=== PATIENT | female | born 1990 | race American Indian/Alaskan Native ===

== ENCOUNTER 2017-11-10 20:50 | Emergency (ER) | payer MEDICAID ==
--- NOTE | 2017-11-10 23:41 | XRay Report ---
FINAL REPORT EXAM: XR CHEST ROUTINE 2V HISTORY: chest pain s/p fall TECHNIQUE: 2 views of the chest. PRIORS: None. FINDINGS: The cardiomediastinal silhouette appears normal. The lungs are clear. The bones and soft tissues are unremarkable. IMPRESSION: No evidence of acute cardiopulmonary disease
[2017-11-11] MEDS ORDERED: ROXICODONE PO ONE (05:04)
--- NOTE | 2017-11-11 05:10 | Emergency Department Report ---
ED General Adult HPI - General Chief complaint: Chest Pain Stated complaint: CP Time Seen by Provider: 11/11/17 04:50 Source: patient Mode of arrival: Ambulatory Limitations: No Limitations - History of Present Illness Initial comments: Patient sustained fall while going downstairs approximately 6-8 hours prior to arrival, reporting that she struck central portion of her's chest over her sternum directly, with significant and persistent pain in that area. She is not practically short of breath, has no bony pains in the sides or in the ribs, but she also has discomfort in the right side of her neck, aggravated with any movements. She has no focal neurologic symptoms, she has no paresthesias or numbness in the shoulder or in the arms. She's been in good general health, has not been ill recently, has no cardiopulmonary problems, Onset/Timin -: hour(s) Location: chest Radiation: non-radiation Severity scale (0 -10): 10 Quality: aching, sharp Consistency: constant Improves with: none Worsens with: other Associated Symptoms: other (deep breathing right-sided neck pain) - Related Data Previous Rx's Medication Instructions Recorded Last Taken Type HYDROcodone/APAP 5-325 [[place] 2 each PO Q6H PRN #30 tablet 02/04/16 Unknown Rx 5-325 mg TAB] Ibuprofen [Motrin 600 MG tab] 600 mg PO Q6HR PRN #60 tablet 02/04/16 Unknown Rx oxyCODONE /ACETAMINOPHEN [Percocet 1 - 2 tab PO Q6HR PRN #30 tab 11/11/17 Unknown Rx 5/325] Allergies Allergy/AdvReac Type Severity Reaction Status Date / Time No Known Allergies Allergy Verified 07/15/15 12:55 ED Review of Systems ROS: Stated complaint: CP Other details as noted in HPI Comment: All other systems reviewed and negative Constitutional: denies: chills, fever Eyes: denies: eye pain, eye discharge, vision change ENT: denies: ear pain, throat pain Respiratory: other (anterior chest pain overlying sternum) Cardiovascular: chest pain. denies: syncope Endocrine: no symptoms reported Gastrointestinal: denies: abdominal pain, nausea, diarrhea Musculoskeletal: denies: back pain, joint swelling, arthralgia Skin: denies: rash, lesions Neurological: denies: headache, weakness, paresthesias Psychiatric: denies: anxiety, depression ED Past Medical Hx - Past Medical History Previous Medical History?: Yes Hx Hypertension: No Hx Congestive Heart Failure: No Hx Diabetes: No Hx Deep Vein Thrombosis: No Hx Renal Disease: No Hx Sickle Cell Disease: No Hx Seizures: No Hx Asthma: No Hx COPD: No Hx HIV: No Additional medical history: scoliosis - Surgical History Past Surgical History?: No - Social History Smoking Status: Never Smoker Substance Use Type: Alcohol, Marijuana - Medications Home Medications: Home Medications Medication Instructions Recorded Confirmed Last Taken Type HYDROcodone/APAP 5-325 [[place] 2 each PO Q6H PRN #30 tablet 02/04/16 Unknown Rx 5-325 mg TAB] Ibuprofen [Motrin 600 MG tab] 600 mg PO Q6HR PRN #60 tablet 02/04/16 Unknown Rx oxyCODONE /ACETAMINOPHEN [Percocet 1 - 2 tab PO Q6HR PRN #30 tab 11/11/17 Unknown Rx 5/325] ED Physical Exam - General Limitations: No Limitations General appearance: in distress (moderate discomfort secondary to persistent chest pain in area of impact) - Head Head exam: Present: atraumatic, normocephalic - Eye Eye exam: Present: PERRL, EOMI - ENT ENT exam: Present: normal exam, mucous membranes moist - Neck Neck exam: Present: tenderness (right paracervical soft tissue, no direct cervical spine tenderness or step-off.). Absent: full ROM (limited by pain, particularly on right side) - Respiratory Respiratory exam: Present: normal lung sounds bilaterally, chest wall tenderness (anteriorly, overlying midsternum and lower sternum). Absent: respiratory distress, wheezes, rales, rhonchi - Cardiovascular Cardiovascular Exam: Present: regular rate, normal rhythm. Absent: systolic murmur, diastolic murmur, rubs, gallop - GI/Abdominal GI/Abdominal exam: Present: soft, normal bowel sounds - Rectal Rectal exam: Present: deferred - Extremities Exam Extremities exam: Present: normal inspection, full ROM. Absent: tenderness - Back Exam Back exam: Present: normal inspection. Absent: tenderness - Neurological Exam Neurological exam: Present: alert, oriented X3, CN II-XII intact. Absent: motor sensory deficit - Psychiatric Psychiatric exam: Present: normal affect, normal mood - Skin Skin exam: Present: warm, dry, intact, normal color. Absent: rash ED Course Vital Signs 11/10/17 11/11/17 21:53 05:20 Temperature 37.2 C Pulse Rate 75 Respiratory 18 Rate Blood Pressure 130/88 O2 Sat by Pulse 100 Oximetry - Reevaluation(s) Reevaluation #1: 11/11/17 06:06 Patient is still uncomfortable in the sternal area on recheck, but is stable, breathing normally, and has negative evaluation: Chest x-ray, sternal x-ray and cervical spine x-rays. She is stable for discharge home, but will need rest, will be given work release, and analgesics. ED Medical Decision Making - Radiology Data Radiology results: report reviewed (x-rays reviewed, show normal chest x-ray, with no pneumothorax, sternal views are negative, cervical spine is also negative.) - Medical Decision Making Patient has a significant contusion to the sternum, which makes it difficult to breathe, but she is clinically stable, has stable vital signs, no fracture, no pneumothorax, and no findings suggestive of acute cervical injury other than soft tissue myofascial strain. She can be treated symptomatically with rest, local heat, and analgesics. She'll be given work release, and recommended for follow-up examination in 4-5 days by primary care physician. - Differential Diagnosis sternal fracture, rib fracture, costochondritis, pneumothorax Critical Care Time: No Critical care attestation.: If time is entered above; I have spent that time in minutes in the direct care of this critically ill patient, excluding procedure time. ED Disposition Clinical Impression: Sternal contusion Chest wall contusion Qualifiers: Encounter type: initial encounter Laterality: unspecified laterality Qualified Code(s): S20.219A - Contusion of unspecified front wall of thorax, initial encounter Acute cervical myofascial strain Qualifiers: Encounter type: initial encounter Qualified Code(s): S16.1XXA - Strain of muscle, fascia and tendon at neck level, initial encounter Disposition: -01 TO HOME OR SELFCARE Is pt being admited?: No Does the pt Need Aspirin: No Condition: Stable Instructions: Contusion in Adults (ED) Additional Instructions: You have bruised her chest wall, but there are no fractures. You have also strained the neck injury or fall, but there are no fractures in the neck either. We're prescribing oxycodone for severe pain, which you may take one or 2 tablets at a time, every 6 hours as needed. Cool compresses may help, 15-30 minutes at a time, 3-4 times per day, but she may also use moist heat, moderate level, the same duration and frequency. Rest while you're feeling poorly, but remember that you may get more stiff and more painful over the next couple days before he started to feel better. This is normal, but we want you to come back for repeat examination if you have any severe shortness of breath, difficulty breathing, or severe abdominal pain Have repeat examination by your doctor next week. Prescriptions: oxyCODONE /ACETAMINOPHEN [Percocet 5/325] 1 - 2 tab PO Q6HR PRN #30 tab PRN Reason: Pain , Severe (7-10) Referrals: PRIMARY CARE, [Primary Care Provider] - 3-5 Days Time of Disposition: 06:13
--- NOTE | 2017-11-11 05:42 | XRay Report ---
FINAL REPORT PROCEDURE: XR SPINE CERVICAL 2-3V TECHNIQUE: Cervical spine radiographs, AP and lateral projections. CPT 56017 HISTORY: fall, direct trauma sternum, right neck pain COMPARISON: No prior studies are available for comparison. FINDINGS: Prevertebral soft tissues: Normal. Alignment: Normal. Vertebral body heights/Disk spaces: Normal. Fracture(s): None. Facets: Normal. Bone mineralization: Normal. IMPRESSION: Normal Examination
--- NOTE | 2017-11-11 05:44 | XRay Report ---
FINAL REPORT PROCEDURE: XR STERNUM 2+V TECHNIQUE: Sternal radiographs, minimum of 2 views, including lateral and oblique projections. HISTORY: fall, direct sternal trauma, right cervical pain COMPARISON: No prior studies are available for comparison. FINDINGS: Bone mineralization: Normal. Fractures: None. Retrosternal soft tissue: Normal. IMPRESSION: Normal Examination.
[2017-11-11 07:03] VITALS: BP 126/80
== END 2017-11-11 06:25 | disposition home or self-care (01) ==
LOC: ED 20:50
DX: S16.1XXA Strain of muscle, fascia and tendon at neck level, initial encounter (principal); S20.219A Contusion of unspecified front wall of thorax, initial encounter; F12.10 Cannabis abuse, uncomplicated; W18.30XA Fall on same level, unspecified, initial encounter; Y93.89 Activity, other specified; Y92.89 Other specified places as the place of occurrence of the external cause; Y99.8 Other external cause status
CPT/HCPCS: 71046; 71120; 72040; 93005; 93010

== ENCOUNTER 2019-09-09 10:02 | Emergency (ER) | payer MEDICAID, OTHER ==
[2019-09-09] MEDS ORDERED: KETOROLAC 30 MG/1 ML INJ IV ONE (10:59)
[2019-09-09] MEDS ORDERED: SODIUM CHLORIDE 0.9% 1000 ML 1,000 ML IV ONE ×2 (10:59→12:04)
--- NOTE | 2019-09-09 10:59 | Emergency Department Report ---
ED Female HPI - General Chief complaint: Vaginal Bleeding Stated complaint: POSS MISCARRIAGE Time Seen by Provider: 09/09/19 10:54 Source: patient Mode of arrival: Wheelchair Limitations: No Limitations - History of Present Illness Initial comments: This is a 29-year-old female with history of scoliosis and migraine headache who presents with vaginal bleeding severe lower pelvic cramping which began today. She arrived per EMS. At 8 weeks gestation she underwent medical with pharmacotherapy at a clinic on . She had mild bleeding on Monday. No pain or bleeding Monday or Monday. Beginning 1 AM this morning she has such severe vaginal bleeding that she filled a pad every 10 minutes. She feels weak. This is patient's 4 . She has 4 children. This is her second . MD Complaint: vaginal bleeding -: Sudden, This morning Severity: moderate, severe Quality: cramping Consistency: constant Improves with: none Worsens with: none Are you Now?: Yes (Recent medical on ) Associated Symptoms: vaginal bleeding - Related Data : 6 Para: 4 A: 2 Previous Rx's Medication Instructions Recorded Last Taken Type HYDROcodone/APAP 5-325 [[place] 2 each PO Q6H PRN #30 tablet 02/04/16 Unknown Rx 5-325 mg TAB] Ibuprofen [Motrin 600 MG tab] 600 mg PO Q6HR PRN #60 tablet 02/04/16 Unknown Rx oxyCODONE /ACETAMINOPHEN [Percocet 1 - 2 tab PO Q6HR PRN #30 tab 11/11/17 Unknown Rx 5/325] HYDROcodone/APAP 5-325 [[place] 1 each PO Q6HR PRN #10 tablet 09/09/19 Unknown Rx 5/325] Methylergonovine [Methergine] 0.2 mg PO Q6H 2 Days #8 tablet 09/09/19 Unknown Rx Promethazine [Phenergan] 25 mg PO Q6HR PRN #10 tab 09/09/19 Unknown Rx Allergies Allergy/AdvReac Type Severity Reaction Status Date / Time No Known Allergies Allergy Verified 07/15/15 12:55 ED Review of Systems ROS: Stated complaint: POSS MISCARRIAGE Other details as noted in HPI Comment: All other systems reviewed and negative Constitutional: malaise. denies: fever Respiratory: denies: cough Cardiovascular: denies: chest pain Gastrointestinal: abdominal pain Genitourinary: other (Severe vaginal bleeding) ED Past Medical Hx - Past Medical History Previous Medical History?: Yes Hx Hypertension: No Hx Congestive Heart Failure: No Hx Diabetes: No Hx Deep Vein Thrombosis: No Hx Renal Disease: No Hx Sickle Cell Disease: No Hx Seizures: No Hx Asthma: No Hx COPD: No Hx HIV: No Additional medical history: scoliosis - Social History Smoking Status: Never Smoker Substance Use Type: Marijuana - Medications Home Medications: Home Medications Medication Instructions Recorded Confirmed Last Taken Type HYDROcodone/APAP 5-325 [[place] 2 each PO Q6H PRN #30 tablet 02/04/16 Unknown Rx 5-325 mg TAB] Ibuprofen [Motrin 600 MG tab] 600 mg PO Q6HR PRN #60 tablet 02/04/16 Unknown Rx oxyCODONE /ACETAMINOPHEN [Percocet 1 - 2 tab PO Q6HR PRN #30 tab 11/11/17 Unknown Rx 5/325] HYDROcodone/APAP 5-325 [[place] 1 each PO Q6HR PRN #10 tablet 09/09/19 Unknown Rx 5/325] Methylergonovine [Methergine] 0.2 mg PO Q6H 2 Days #8 tablet 09/09/19 Unknown Rx Promethazine [Phenergan] 25 mg PO Q6HR PRN #10 tab 09/09/19 Unknown Rx ED Physical Exam - General Limitations: No Limitations General appearance: alert, in no apparent distress - Head Head exam: Present: atraumatic, normocephalic - Eye Eye exam: Present: normal appearance - ENT ENT exam: Present: mucous membranes dry - Neck Neck exam: Present: normal inspection, full ROM - Respiratory Respiratory exam: Present: normal lung sounds bilaterally. Absent: respiratory distress, wheezes, rales, rhonchi - Cardiovascular Cardiovascular Exam: Present: regular rate, normal rhythm, normal heart sounds. Absent: systolic murmur, diastolic murmur, rubs, gallop - GI/Abdominal GI/Abdominal exam: Present: soft, normal bowel sounds. Absent: distended, tenderness, guarding, rebound - Extremities Exam Extremities exam: Present: normal inspection - Neurological Exam Neurological exam: Present: alert, oriented X3 - Psychiatric Psychiatric exam: Present: normal affect, normal mood - Skin Skin exam: Present: warm, dry, intact, normal color. Absent: rash ED Course Vital Signs 0409/09/19 09/09/19 10:27 10:41 10:47 Pulse Rate 81 Respiratory 20 Rate Blood Pressure 81/45 98/58 O2 Sat by Pulse 97 96 100 Oximetry 09/09/19 09/09/19 09/09/19 11:00 11:15 11:30 Pulse Rate 68 73 76 Respiratory 26 H 29 H 24 Rate Blood Pressure 93/61 98/58 85/55 O2 Sat by Pulse 98 100 100 Oximetry 09/09/19 09/09/19 09/09/19 11:45 12:00 12:15 Pulse Rate 70 65 65 Respiratory 18 25 H 26 H Rate Blood Pressure 97/49 107/56 99/55 O2 Sat by Pulse 100 100 100 Oximetry 09/09/19 09/09/19 09/09/19 12:30 12:45 13:00 Pulse Rate 61 81 72 Respiratory 23 16 31 H Rate Blood Pressure 104/55 104/55 110/58 O2 Sat by Pulse 100 100 100 Oximetry 09/09/19 09/09/19 09/09/19 13:15 14:09 14:15 Pulse Rate 73 88 74 Respiratory 28 H 19 Rate Blood Pressure 110/58 98/52 101/59 O2 Sat by Pulse 100 100 100 Oximetry 09/09/19 09/09/19 09/09/19 14:30 14:45 15:01 Pulse Rate 76 83 80 Respiratory 27 H 21 15 Rate Blood Pressure 98/62 100/61 104/65 O2 Sat by Pulse 100 100 100 Oximetry 09/09/19 09/09/19 09/09/19 15:15 15:30 15:45 Pulse Rate 73 76 79 Respiratory 20 11 L 22 Rate Blood Pressure 108/62 116/79 110/69 O2 Sat by Pulse 100 100 100 Oximetry 09/09/19 16:00 Pulse Rate 82 Respiratory 10 L Rate Blood Pressure 116/65 O2 Sat by Pulse 100 Oximetry ED Medical Decision Making - Lab Data Result diagrams: 09/09/19 11:14 09/09/19 11:14 - Medical Decision Making Incomplete miscarriage after medical , Rh positive, ultrasound revealed retained products of conception. Hemoglobin 10. Vitals normalized after IV fluid therapy. I suspect mild hypovolemia due to vomiting. I spoke with Dr. Russell G[employer]ER on-call she recommended Methergine IM 1 dose in the emergency department also 0.2 mg every 6 hours for 2 days. She also recommended outpatient follow-up in her office. After resuscitation, vital signs have normalized. Repeat blood pressure 113/76. Repeat heart rate 75. Patient feels much better. She understands return precautions. Prescriptions provided: Methergine, promethazine, [place] Critical Care Time: Yes Critical care time in (mins) excluding proc time.: 40 Critical care attestation.: If time is entered above; I have spent that time in minutes in the direct care of this critically ill patient, excluding procedure time. 40 minutes of critical care time excluding procedures were used in the care of the patient. I reviewed electronic record. I discussed treatment plan with the nursing team members at the bedside. I came immediately to the bedside upon patient's arrival. Charge nurse is concerned for hypotension.. Patient required multiple interventions and reassessments. ED Disposition Clinical Impression: Incomplete Disposition: DC-01 TO HOME OR SELFCARE Is pt being admited?: No Does the pt Need Aspirin: No Condition: Stable Instructions: Spontaneous Miscarriage (ED) Prescriptions: Methylergonovine [Methergine] 0.2 mg PO Q6H 2 Days #8 tablet HYDROcodone/APAP 5-325 [[place] 5/325] 1 each PO Q6HR PRN #10 tablet PRN Reason: Pain Promethazine [Phenergan] 25 mg PO Q6HR PRN #10 tab PRN Reason: Nausea Referrals: JUAN RUSSELL MD [Staff Physician] - 3-5 Days
[2019-09-09 11:40] LABS: Basophils % (Auto) 0.1 % (0.0-1.8); Eosinophils % (Auto) 0.3 % (0.0-4.3); Hematocrit 29.6 % (30.3-42.9); Lymphocytes # (Auto) 2.9 K/mm3 (1.2-5.4); Lymphocytes % (Auto) 22.1 % (13.4-35.0); Mean Corpuscular HGB Conc 34 % (30-34); Mean Corpuscular Volume 98 fl (79-97); Monocytes # (Auto) 0.7 K/mm3 (0.0-0.8); Monocytes % (Auto) 5.2 % (0.0-7.3); Platelet Count 227 K/mm3 (140-440); Red Blood Count 3.02 M/mm3 (3.65-5.03); Red Cell Distribution Width 14.3 % (13.2-15.2)
[2019-09-09 12:01] LABS: BUN/Creatinine Ratio 18; Blood Urea Nitrogen 7 mg/dL (7-17); Calcium 8.2 mg/dL (8.4-10.2); Hemolysis Index 14
--- NOTE | 2019-09-09 14:43 | Ultrasound Report ---
FIRSTTRIMESTER OBSTETRIC ULTRASOUND ULTRASOUND OB TRANSVAGINAL HISTORY: Bleeding after COMPARISON: None. TECHNIQUE: Routine transabdominal and transvaginal OB ultrasound performed. FINDINGS: The uterus is anteverted. The uterus is enlarged measuring 14 x 6 x 8 cm. No obvious uterine mass. The endometrium is thickened and complex measuring up to 2.7 cm. No intrauterine is appreci ated at this time. The right ovary measures 3.1 x 1.9 x 4.3 cm. The left ovary measures 3.1 x 1.9 x 2.7 cm. No adnexal c yst or mass. No pelvic fluid collection. IMPRESSION No intrauterine is visualized on ultrasound. The endometrium is thickened up to 2.7 cm whic h could represent retained products of conception. Please correlate with the patient's clinical prese ntation. Signer Name: José Luis Smith Jr, MD Signed: 09/09/2019 2:38 PM Workstation Name: [id number]
[2019-09-09] MEDS ORDERED: METHYLERGONOVINE MALEATE 0.2 MG/ML VIAL IM ONE (15:16)
[2019-09-09 17:44] VITALS: BP 116/71
== END 2019-09-09 17:30 | disposition home or self-care (01) ==
LOC: ED 10:02
DX: O03.4 Incomplete spontaneous abortion without complication (principal); F12.10 Cannabis abuse, uncomplicated; Z79.899 Other long term (current) drug therapy
CPT/HCPCS: 36415; 76801; 76817; 80048; 84702; 85025; 86900; 86901; 96372; 96374; 99284; J1885; J2210; J7030

== ENCOUNTER 2019-10-23 11:21 | Day surgery (SDC) | payer MEDICAID ==
[2019-10-22 13:37] LABS: Basophils % (Auto) 0.6 % (0.0-1.8); Eosinophils # (Auto) 0.1 K/mm3 (0.0-0.4); Eosinophils % (Auto) 0.9 % (0.0-4.3); Hematocrit 30.1 % (30.3-42.9); Hemoglobin 9.5 gm/dl (10.1-14.3); Lymphocytes # (Auto) 2.5 K/mm3 (1.2-5.4); Lymphocytes % (Auto) 33.3 % (13.4-35.0); Mean Corpuscular HGB Conc 32 % (30-34); Mean Corpuscular Volume 86 fl (79-97); Monocytes # (Auto) 0.7 K/mm3 (0.0-0.8); Monocytes % (Auto) 8.9 % (0.0-7.3); Platelet Count 311 K/mm3 (140-440); Red Cell Distribution Width 17.9 % (13.2-15.2)
--- NOTE | 2019-10-22 17:53 | Short Stay Summary ---
Short Stay Documentation Date of service: 10/23/19 Narrative H&P: 29y/o s/p elective termination of in august presents with continued vaginal bleeding. Evaluation in the ED demonstrated a thickened endometrium consistent with retained products of conception. Patient has been reassessed/reevaluated/re-examined. H&P has been reviewed. No interval changes. - History Principal diagnosis: Retained products of conception Past Medical History: No medical history Past Surgical History: No surgical history Social history: single - Allergies and Medications Current Medications: Allergies No Known Allergies Allergy (Verified 10/18/19 14:49) Home Medications Medication Instructions Recorded Confirmed Last Taken Type No Known Home Medications [No 10/18/19 10/18/19 Unknown History Reported Home Medications] - Physical exam General appearance: no acute distress Integumentary: no rash HEENT: Atraumatic Lungs: Clear to auscultation Breasts: deferred Heart: Regular rate Gastrointestinal: normal Female Genitourinary: deferred Rectal Exam: deferred - Brief post op/procedure progress note Date of procedure: 10/23/19 Pre-op diagnosis: Retained products of conception Post-op diagnosis: same Procedure: Suction dilatation and curettage Anesthesia: ANNIE Surgeon: RANDY PIEDRA Estimated blood loss: minimal Pathology: list (Retained products of conception) Specimen disposition: to lab Condition: stable - Hospital course Hospital course: The patient was admitted the day of surgery and underwent a suction dilatation and curettage. Please see operative note for details of surgery. Her postoperative course was uneventful. - Disposition Condition at discharge: Good Disposition: DC-01 TO HOME OR SELFCARE - Discharge Diagnoses (1) Retained products of conception Status: Acute Short Stay Discharge Plan Activity: other (Pelvic rest for 1 week) Diet: regular Additional Instructions: Schedule follow-up in 2 weeks Prescriptions: Ibuprofen [Motrin] 800 mg PO Q8HR PRN #60 tablet PRN Reason: Pain , Severe (7-10) HYDROcodone/APAP 5-325 [[place] 5/325] 1 each PO Q6HR PRN #20 tablet PRN Reason: Pain
--- NOTE | 2019-10-23 07:08 | Anesthesia Day of Surgery ---
Anesthesia Day of Surgery - Day of Surgery Patient Examined: Yes Patient H&P Reviewed: Yes Patient is NPO: Yes
--- NOTE | 2019-10-23 07:09 | Anesthesia Consultation ---
Anesthesia Consult and Med Hx Date of service: 10/23/19 - Airway Anesthetic Teeth Evaluation: Good ROM Head & Neck: Adequate Mental/Hyoid Distance: Adequate Mallampati Class: Class I Intubation Access Assessment: Good - Pre-Operative Health Status ASA Pre-Surgery Classification: ASA2 Proposed Anesthetic Plan: General - Pulmonary Hx Smoking: Yes Hx Asthma: No COPD: No Hx Pneumonia: No - Cardiovascular System Hx Hypertension: No - Central Nervous System Hx Seizures: No Hx Psychiatric Problems: No - Endocrine Hx Renal Disease: No Hx End Stage Renal Disease: No Hx Hypothyroidism: No Hx Hyperthyroidism: No - Hematic Hx Anemia: No Hx Sickle Cell Disease: No - Other Systems Hx Alcohol Use: Yes (Occas) Hx Cancer: No
[2019-10-23 10:16] VITALS: BP 120/75
--- NOTE | 2019-10-23 10:38 | Post Anesthesia Evaluation ---
- Post Anesthesia Evaluation Patient Participated: Yes Airway Patent: Yes Stable Respiratory Function: Yes Nausea/Vomiting: No Temp > 96.8F: Yes Pain Manageable: Yes Adequeate Hydration: Yes Anesthesia Complications: No Block Receding Appropriately: Not Applicable Patient on Ventilator: No
[~2019-10-23 11:21] MED LIST: BUPIVACAINE/PF (0.5%) 5 MG/1 ML 30 ML VIAL INFILTRATI ONE; HYDROcodone/ACETAMINOPHEN 5-325 MG TAB PO PRN; KETOROLAC 30 MG/1 ML INJ ONE; LACTATED RINGERS 1,000 ML IV SCH; METHYLERGONOVINE MALEATE 0.2 MG/ML VIAL IM ONE; MIDAZOLAM 2 MG/2 ML INJ IV NR; MIDAZOLAM 2 MG/2 ML INJ ONE; ONDANSETRON 4 MG/2 ML INJ IV PRN; ONDANSETRON 4 MG/2 ML INJ ONE; SILVER NITRATE APPLICATOR 1 EA TP ONE; SODIUM CHLORIDE 0.9% IRR 1,000 ML BOTTLE IR ONE; dexAMETHasone 20 MG/5 ML VIAL ONE; ePHEDrine SULFATE 50 MG/1 ML INJ ONE; fentaNYL 100 MCG/2 ML INJ IV PRN; fentaNYL 100 MCG/2 ML INJ ONE; propofoL 200 MG/20 ML VIAL IV ONE
--- NOTE | 2019-10-29 17:18 | Operative Report ---
Operative Report Operative Report: Date of surgery: October 23, 2019 Preoperative diagnosis: Retained products of conception Postoperative diagnosis: Same as above Procedure: Suction dilatation and curettage Surgeon: Soco Lim M.D. Anesthesia: Gen. endotracheal anesthesia Estimated blood loss: 50 mL Findings: Retained products of conception Indication: 29-year-old -0-2-4 status post termination of presents with continued vaginal bleeding. Pelvic ultrasound demonstrated a thickened endometrium consistent with retained products of conception Procedure: The patient was taken to the operating room and given general endotracheal anesthesia without complication. The patient is prepped and draped in a normal sterile fashion. A bivalve speculum was placed in the patient's vagina and a single-tooth tenaculums placed on the anterior lip of the cervix. The uterine cavity was then sounded. The cervical os was then dilated with graduated dilators. A number 7 Syriac curved cannula was placed to suction and found to be adequate. The cannula was then gently inserted into the dilated cervical os. Evacuation of the uterine contents were performed. Sharp curettage and endometrial surface was performed until cry was achieved. The cannula was then gently reinserted into the uterine cavity to evacuate any additional contents. After removal of the cannula there was no evidence of any active bleeding. The vaginal instruments were then removed atraumatically. The patient was then successfully extubated and taken to the recovery room in stable condition. All sponge laps and needle counts were correct x2. Pathology consisted of products of conception.
== END 2019-10-23 11:22 | disposition home or self-care (01) ==
LOC: OR 11:21
PROVIDERS: ATTEND Obstetrics & Gynecology
DX: O02.89 Other abnormal products of conception (principal); O03.4 Incomplete spontaneous abortion without complication; G43.909 Migraine, unspecified, not intractable, without status migrainosus; Z72.89 Other problems related to lifestyle; Z98.890 Other specified postprocedural states; Z79.899 Other long term (current) drug therapy; Z83.3 Family history of diabetes mellitus; Z82.49 Family history of ischemic heart disease and other diseases of the circulatory system
CPT/HCPCS: 36415; 59812; 85025; 88305; J1100; J1885; J2250; J2405; J2704; J3010; J7120; J2210